=== PATIENT | female | born 1945 | race Caucasian/White ===

== ENCOUNTER 2016-12-24 22:05 | Emergency (ER) | payer MEDICARE ==
[~2016-12-24] VITALS: Ht 157.5 cm; Wt 72.6 kg
[2016-12-24] MEDS ORDERED: MECLIZINE 25 MG TABLET PO ONE (22:30)
[2016-12-24] MEDS ORDERED: ONDANSETRON ODT 4 MG TAB.RAPDIS PO ONE (22:30)
[2016-12-24] MEDS ORDERED: DOCUSATE 100 MG/10 ML SOLUTION. OT ONE (23:00)
[2016-12-25 00:32] VITALS: BP 118/88
--- NOTE | 2016-12-25 06:03 | EKG ---
[address] [address] Test Date: 2016-12-24 Test Time: 22:32:47 Pat Name: GUME CAAL Department: Room: Gender: F [employer]: CRUZ : 1945 Requested By: RAYNA MCKENZIE Order Number: [id number] Reading MD: Carmelo Huizar Measurements Intervals [place] Rate: 81 P: 40 LA: 180 QRS: 2 QRSD: 84 T: 27 QT: 404 QTc: 470 Interpretive Statements SINUS RHYTHM Electronically Signed On 12-25-2016 15:10:24 CDT by Carmelo Huizar
--- NOTE | 2016-12-28 08:08 | ED.ADGEN ---
Past History Past Medical History: Cancer Past Surgical History: Other Alcohol Use: None Drug Use: None Adult General Chief Complaint Chief Complaint Nausea and vomiting HPI HPI Patient is a 71-year-old female presents with dizziness described as vertigo, left ear fullness and nausea vomiting. Symptom onset was several hours prior to ED arrival. Patient reports feeling dizzy or off balance upon standing due to room spinning. Symptoms are intermittent of present improved at this time. She denies laterality of symptoms does not fall or lean to one side. Denies change of vision, except tinnitus, posterior neck pain, extremity weakness or loss of sensation. Denies chest pain shortness breath, palpitations and abdominal pain. Denies prior episodes of vertigo although less intense. No other acute symptoms or complaints at this time. Patient is not currently on any medications and has not seen a primary care physician or number of years. She lives by herself. Review of Systems Review of Systems Review symptoms as per history of present illness. All other review symptoms are negative. Current Medications Current Medications Current Medications Medications (Trade) Dose Ordered Sig/Bari Start Time Stop Time Status Last Admin Dose Admin Docusate Sodium (Colace Solution) 100 mg 1X ONCE 12/24/16 23:00 12/24/16 23:01 DC 12/24/16 22:55 100 MG Meclizine HCl (Antivert) 50 mg 1X ONCE 12/24/16 22:30 12/24/16 22:42 DC 12/24/16 22:30 50 MG Ondansetron HCl (Zofran Odt) 4 mg 1X ONCE 12/24/16 22:30 12/24/16 22:42 DC 12/24/16 22:30 4 MG Allergies Allergies Allergies Coded Allergies Type Severity Reaction Last Updated Verified No Known Drug Allergies 12/24/16 No Physical Exam Physical Exam Constitutional: Well developed, well nourished, no acute distress, non-toxic appearance. [] HENT: Normocephalic, atraumatic, bilateral external ears normal, cerumen impacted external auditory canals oropharynx moist, no oral exudates, nose normal. [] Eyes: PERRLA, EOMI, conjunctiva normal, no discharge. No nystagmus [] Neck: Normal range of motion, no tenderness, supple, no stridor. [] Cardiovascular:Heart rate regular rhythm, no murmur [] Lungs & Thorax: Bilateral breath sounds clear to auscultation [] Abdomen: Bowel sounds normal, soft, no tenderness, no masses, no pulsatile masses. [] Skin: Warm, dry, no erythema, no rash. [] Back: No tenderness, no CVA tenderness. [] Extremities: No tenderness, no cyanosis, no clubbing, ROM intact, no edema. [] Neurologic: Alert and oriented X 3, radial nerves II through XII grossly intact , normal motor function, normal sensory function, no focal deficits noted. [] Psychologic: Affect normal, judgement normal, mood normal. [] Current Patient Data Vital Signs Vital Signs Date Time Temp Pulse Resp B/P (MAP) Pulse Ox O2 Delivery O2 Flow Rate FiO2 12/25/16 00:32 98.2 89 20 118/88 (98) 95 Room Air EKG EKG [EKG: Normal sinus rhythm, no acute ST-T wave changes] Radiology/Procedures Radiology/Procedures [] Course & Med Decision Making Course & Med Decision Making Pertinent Labs and Imaging studies reviewed. (See chart for details) [Patient nausea improved with treatment. Patient external canals disimpact the ED with improved hearing. Etiology of the patient's symptoms is unclear. This could be related to stroke, abnormal electrolytes, vertebrobasilar artery deficiency, versus positional vertigo versus labyrinthitis. Patient is extremely reluctant states she is deathly afraid of needles and doctors. She declines all blood work and imaging. Patient states she feels improved must go home. Patient verbalized understanding that more serious diagnosis considered have not been eliminated. Patient recommended to follow up with PCP to return to the emergency department if she changes her mind regarding further evaluation.] Final Impression Final Impression [1. Dizziness 2. Nausea and vomiting 3. Cerumen impaction Problems: Dragon Disclaimer Dragon Disclaimer This electronic medical record was generated, in whole or in part, using a voice recognition dictation system. RAYNA MCKENZIE DO Dec 28, 2016 08:08
== END 2016-12-25 00:32 | disposition home or self-care (01) ==
LOC: ER 22:05
DX: H61.22 Impacted cerumen, left ear (principal); R11.2 Nausea with vomiting, unspecified; R42 Dizziness and giddiness
CPT/HCPCS: 69209; 93005; 99283; J8597; Q0162